=== PATIENT | female | born 2005 | race Caucasian/White ===

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

== ENCOUNTER 2023-05-22 23:05 | Emergency (ER) | payer BC | END 2023-05-22 23:48 | disposition home or self-care (01) | LOC: FB.ED 23:05 | DX: R07.89 Other chest pain (principal); Z88.0 Allergy status to penicillin; Z86.19 Personal history of other infectious and parasitic diseases | CPT/HCPCS: 71045; 93005; 99284 ==